=== PATIENT | male | born 1945 | race Caucasian/White ===

== ENCOUNTER 2020-08-05 14:17 | Observation (INO) | payer MEDICARE ==
[2020-08-05] MEDS ORDERED: Sodium Chloride 0.9% 1000 ML 1,000 ML IV SCH (15:30)
[2020-08-05] MEDS ORDERED: TYLENOL 325 MG PO SCH (15:30)
[2020-08-05] MEDS ORDERED: BENADRYL 25 MG CAPSULE PO SCH (15:30)
[2020-08-05] MEDS ORDERED: Lasix 20 MG/2 ML IV SCH (15:45)
[2020-08-05 16:41] LABS: Antibody Screen NEGATIVE (NEGATIVE); RH TYPING POSITIVE
[2020-08-05 16:42] LABS: CROSS MATCH (PRBC) COMPATIBLE (COMPATIBLE); Ferritin 52.9 ng/mL (17.9-464)
[2020-08-05] MEDS ORDERED: TYLENOL 325 MG PO PRN (17:00)
[2020-08-05] MEDS ORDERED: MEDICATION INTERVENTION MC SCH (17:30)
[2020-08-05 17:51] LABS: ABO TYPING O
[2020-08-05] MEDS ORDERED: NORVASC 5 MG PO SCH (18:00)
[2020-08-05] MEDS: Toprol Xl 100 MG PO SCH (18:21)
[2020-08-05] MEDS ORDERED: PYRIDOXINE HCL PO SCH (22:00)
[2020-08-05] MEDS ORDERED: TIMOPTIC 0.5% 5 ML OPHTHALMIC OP SCH (22:00)
[2020-08-05] MEDS ORDERED: MELATONIN PO SCH (22:00)
[2020-08-05] MEDS ORDERED: LATANOPROST OP SCH (22:00)
[2020-08-05] MEDS ORDERED: Lasix 20 MG/2 ML IV PRN (23:12)
[2020-08-06 06:31] LABS: Absolute Neutrophil Ct (ANC) 4.37 (1.4-6.9); BASOPHIL % 0.2 % (0.0-0.4); Basophil (Absolute #) 0.01 (0-0.4); Eosinophil % 1.4 % (0.00-5.0); Eosinophil (Absolute #) 0.09 (0-0.5); Hematocrit 29.2 % (42-50); Hemoglobin 9.3 gm/dl (12.5-18.0); Lymphocyte (Absolute #) 1.44 (1.0-4.6); Lymphocytes % 22.7 % (24.0-44.0); Mean Cell Volume 95.7 fl (78-100); Mean Corpuscular Hemoglobin 30.5 pg (26-32); Mean Corpuscular Hgb Concent. 31.8 g/dl (32-36); Monocyte (Absolute #) 0.44 (0.0-1.3); Monocytes % 6.9 % (0.0-12.0); Neutrophil % 68.8 % (36.0-66.0); Platelet Count 181 K/mm3 (150-450); Red Blood Count 3.05 M/mm3 (4.1-5.6); Red Cell Distribution Width 17.8 % (11.5-14.0); White Blood Count 6.4 K/mm3 (4.0-10.5)
[2020-08-06 06:49] LABS: ALBUMIN 3.1 g/dL (3.5-5.0); ANION GAP 9.1 MEQ/L (5-15); Calcium 8.1 mg/dL (8.4-10.2); Creatinine 1 2.39 mg/dL (0.66-1.25); EST GLOMERULAR FILTRATION RATE 28.4 ML/MIN; Potassium 4.8 mmol/L (3.5-5.1); Total Protein 7.4 g/dL (6.3-8.2)
--- NOTE | 2020-08-06 08:48 | PCM.HP.ADD ---
Addendum to History & Physical - History & Physical Addendum Addendum to History & Physical: This certifies that the History & Physical in the electronic chart reflects the current health status of the patient. If there are changes in the H&P these changes/exceptions are listed as follows. (Pt seen by Dr. Valderrama in office yesterday; CBC result with Hgb 5.9 so pt admitted for transfusion directly).
--- NOTE | 2020-08-06 08:53 | PCM.NOTE ---
Date and Time: 08/06/2049 Subjective Assessment: Pt without any distinct complaints. He is overall not feeling well. Mary Grace po well. Denies pain. - Review of Systems Constitutional: No Fever Abdominal/Gastrointestinal: No Vomiting Objective Exam General Appearance: no apparent distress, alert Neurologic Exam: oriented x 3, cooperative Skin Exam: normal color, warm, dry, No rash Eye Exam: other (strabismus) Ears, Nose, Throat Exam: moist mucous membranes Neck Exam: normal inspection Respiratory Exam: normal breath sounds, lungs clear, No crackles/rales, No rhonchi, No wheezing Cardiovascular Exam: regular rate/rhythm, normal heart sounds, No murmur Gastrointestinal/Abdomen Exam: soft, normal bowel sounds, No tenderness, No distention, No mass, No guarding, No rebound Extremity Exam: normal inspection, No pedal edema, No swelling Back Exam: normal inspection, No rash OBJECTIVE DATA Vital Signs: Vital Signs - 24 hr Temp Pulse Resp BP Pulse Ox 08/06/20 08:10 94 L 08/06/20 07:32 98.1 F 74 16 173/79 93 L 08/06/20 04:00 98.1 F 70 16 185/80 96 08/05/20 23:52 98.1 F 73 18 161/75 93 L 08/05/20 20:00 92 L 08/05/20 19:44 98.0 F 72 16 147/65 94 L 08/05/20 16:00 98.4 F 73 18 159/73 94 L 08/05/20 15:49 98.4 F 73 18 159/73 94 L 08/05/20 15:20 98.4 F 73 18 159/73 94 L Oxygen-Last 24 hours Oxygen Flowrate (L/min)-RT 2 Pain Assessment - Last Documented Pain Intensity 0 Pain Scale Used 0-10 Pain Scale Intake and Output: Intake & Output 08/03/20 08/04/20 08/05/20 08/06/20 11:59 11:59 11:59 11:59 Intake Total 600 Output Total 2150 Balance -1550 Weight 72.2 kg Lab Results: Lab Results-Last 24 Hours 08/05/20 08/05/20 08/05/20 Range/Units 15:20 15:20 15:20 WBC (4.0-10.5) K/mm3 RBC (4.1-5.6) M/mm3 Hgb (12.5-18.0) gm/dl Hct (42-50) % MCV (78-100) fl MCH (26-32) pg MCHC (32-36) g/dl RDW (11.5-14.0) % Plt Count (150-450) K/mm3 MPV (7.5-11.0) fl Gran % (36.0-66.0) % Eos # (Auto) (0-0.5) Absolute Lymphs (auto) (1.0-4.6) Absolute Monos (auto) (0.0-1.3) Lymphocytes % (24.0-44.0) % Monocytes % (0.0-12.0) % Eosinophils % (0.00-5.0) % Basophils % (0.0-0.4) % Absolute Granulocytes (1.4-6.9) Basophils # (0-0.4) Sodium (137-145) mmol/L Potassium (3.5-5.1) mmol/L Chloride (98-107) mmol/L Carbon Dioxide (22-30) mmol/L Anion Gap (5-15) MEQ/L BUN (9-20) mg/dL Creatinine (0.66-1.25) mg/dL Estimated GFR ML/MIN Glucose (74-106) mg/dL Calcium (8.4-10.2) mg/dL Iron 52 (49-181) ug/dL Ferritin 52.9 (17.9-464) ng/mL Total Bilirubin (0.2-1.3) mg/dL AST (17-59) U/L ALT (0-50) U/L Alkaline Phosphatase (38-126) U/L Serum Total Protein (6.3-8.2) g/dL Albumin (3.5-5.0) g/dL Vitamin B12 640 (239-931) pg/mL ABO Group O Rh Factor POSITIVE Antibody Screen NEGATIVE (NEGATIVE) Crossmatch COMPATIBLE (COMPATIBLE) 08/05/20 08/05/20 08/06/20 Range/Units 15:20 15:20 05:55 WBC 6.4 (4.0-10.5) K/mm3 RBC 3.05 L (4.1-5.6) M/mm3 Hgb 9.3 L D (12.5-18.0) gm/dl Hct 29.2 L (42-50) % MCV 95.7 D (78-100) fl MCH 30.5 (26-32) pg MCHC 31.8 L (32-36) g/dl RDW 17.8 H (11.5-14.0) % Plt Count 181 (150-450) K/mm3 MPV 10.0 (7.5-11.0) fl Gran % 68.8 H (36.0-66.0) % Eos # (Auto) 0.09 (0-0.5) Absolute Lymphs (auto) 1.44 (1.0-4.6) Absolute Monos (auto) 0.44 (0.0-1.3) Lymphocytes % 22.7 L (24.0-44.0) % Monocytes % 6.9 (0.0-12.0) % Eosinophils % 1.4 (0.00-5.0) % Basophils % 0.2 (0.0-0.4) % Absolute Granulocytes 4.37 (1.4-6.9) Basophils # 0.01 (0-0.4) Sodium (137-145) mmol/L Potassium (3.5-5.1) mmol/L Chloride (98-107) mmol/L Carbon Dioxide (22-30) mmol/L Anion Gap (5-15) MEQ/L BUN (9-20) mg/dL Creatinine (0.66-1.25) mg/dL Estimated GFR ML/MIN Glucose (74-106) mg/dL Calcium (8.4-10.2) mg/dL Iron (49-181) ug/dL Ferritin (17.9-464) ng/mL Total Bilirubin (0.2-1.3) mg/dL AST (17-59) U/L ALT (0-50) U/L Alkaline Phosphatase (38-126) U/L Serum Total Protein (6.3-8.2) g/dL Albumin (3.5-5.0) g/dL Vitamin B12 (239-931) pg/mL ABO Group Rh Factor Antibody Screen (NEGATIVE) Crossmatch COMPATIBLE COMPATIBLE (COMPATIBLE) 08/06/20 Range/Units 05:55 WBC (4.0-10.5) K/mm3 RBC (4.1-5.6) M/mm3 Hgb (12.5-18.0) gm/dl Hct (42-50) % MCV (78-100) fl MCH (26-32) pg MCHC (32-36) g/dl RDW (11.5-14.0) % Plt Count (150-450) K/mm3 MPV (7.5-11.0) fl Gran % (36.0-66.0) % Eos # (Auto) (0-0.5) Absolute Lymphs (auto) (1.0-4.6) Absolute Monos (auto) (0.0-1.3) Lymphocytes % (24.0-44.0) % Monocytes % (0.0-12.0) % Eosinophils % (0.00-5.0) % Basophils % (0.0-0.4) % Absolute Granulocytes (1.4-6.9) Basophils # (0-0.4) Sodium 140 (137-145) mmol/L Potassium 4.8 (3.5-5.1) mmol/L Chloride 110 H (98-107) mmol/L Carbon Dioxide 26 (22-30) mmol/L Anion Gap 9.1 (5-15) MEQ/L BUN 49 H (9-20) mg/dL Creatinine 2.39 H (0.66-1.25) mg/dL Estimated GFR 28.4 ML/MIN Glucose 93 (74-106) mg/dL Calcium 8.1 L (8.4-10.2) mg/dL Iron (49-181) ug/dL Ferritin (17.9-464) ng/mL Total Bilirubin 1.00 (0.2-1.3) mg/dL AST 32 (17-59) U/L ALT 21 (0-50) U/L Alkaline Phosphatase 104 (38-126) U/L Serum Total Protein 7.4 (6.3-8.2) g/dL Albumin 3.1 L (3.5-5.0) g/dL Vitamin B12 (239-931) pg/mL ABO Group Rh Factor Antibody Screen (NEGATIVE) Crossmatch (COMPATIBLE) Assessment/Plan (1) Acute renal injury Current Visit: Yes Status: Acute Assessment & Plan: His eGFR was >60 in January 2020; currently 28. I restarted IV fluids at 100 cc/hr; repeat labs in a.m. Code(s): N17.9 - ACUTE KIDNEY FAILURE, UNSPECIFIED (2) Anemia Current Visit: Yes Status: Acute Qualifiers: Anemia type: unspecified type Qualified Code(s): D64.9 - Anemia, unspecified Assessment & Plan: Hemoccult ordered. Pt denies blood in stool (although he notes his eyesight is not good). Denies frequent use of aspirin, aleve, or advil. Code(s): D64.9 - ANEMIA, UNSPECIFIED (3) Chronic hypoxemic respiratory failure Current Visit: Yes Status: Acute
[2020-08-06] MEDS: Sodium Chloride 0.9% 1000 ML 1,000 ML IV SCH ×2 (09:55→21:26)
[2020-08-06] MEDS: NORVASC 5 MG PO SCH ×2 (09:56→21:21)
[2020-08-06] MEDS: Toprol Xl 100 MG PO SCH (09:56)
[2020-08-06] MEDS: FEOSOL 325 MG PO SCH (09:56)
[2020-08-06] MEDS: PATIENT OWN MEDICATION OP SCH ×4 (11:42→21:22)
[2020-08-06] MEDS ORDERED: NORVASC 5 MG PO SCH (22:00)
[2020-08-07] MEDS: Sodium Chloride 0.9% 1000 ML 1,000 ML IV SCH (03:58)
[2020-08-07 05:29] LABS: Hematocrit 28.2 % (42-50); Hemoglobin 8.7 gm/dl (12.5-18.0); Mean Cell Volume 96.6 fl (78-100); Mean Corpuscular Hemoglobin 29.8 pg (26-32); Mean Corpuscular Hgb Concent. 30.9 g/dl (32-36); Mean Platelet Volume 10.3 fl (7.5-11.0); Platelet Count 158 K/mm3 (150-450); Red Blood Count 2.92 M/mm3 (4.1-5.6); Red Cell Distribution Width 17.6 % (11.5-14.0); White Blood Count 6.2 K/mm3 (4.0-10.5)
[2020-08-07 05:39] LABS: ANION GAP 6.9 MEQ/L (5-15); Calcium 7.8 mg/dL (8.4-10.2); Creatinine 1 2.42 mg/dL (0.66-1.25); Potassium 4.6 mmol/L (3.5-5.1)
[2020-08-07 07:46] VITALS: BP 159/75; PULSE 67
[2020-08-07 08:37] VITALS: O2SAT 95
--- NOTE | 2020-08-07 08:43 | PCM.DS ---
Discharge Summary Date of Admission: 08/05/20 14:51 Admitting Physician: NARESH VALDERRAMA Primary Care Provider: NARESH VALDERRAMA Allergies Allergies No Known Drug Allergies Allergy (Verified 08/05/20 15:35) Hospital Summary - Hospital Course Hospital Course: patient was admitted from office after labs showed hemoglobin of 5.9, he was recently hospitalized at [facility] and was found to have anemia during a stay for pneumonia, he also has new onset renal failure. He has an appointment to see Dr Breen in followup later this month, his renal function is stable. his hemoglobin dropped significantly in spite of taking iron therapy after discharge from [facility]. he is being referred for hematology consult, his hemocult was negative during stay, has no gross hematochezia or hematuria and b12/folate are normal - Vitals & Intake/Output Vital Signs: Vital Signs Temperature 98.3 F 08/07/20 07:46 Pulse Rate 67 08/07/20 07:46 Respiratory Rate 18 08/07/20 07:46 Blood Pressure 159/75 08/07/20 07:46 O2 Sat by Pulse Oximetry 95 08/07/20 08:20 Intake & Output: Intake & Output 08/04/20 08/05/20 08/06/20 08/07/20 11:59 11:59 11:59 11:59 Intake Total 1080 2090 Output Total 2150 1420 Balance -1070 670 Weight 72.2 kg - Lab Result Diagrams: 08/07/20 04:27 08/07/20 04:27 Lab Results-Last 24 Hrs: Lab Results-Last 24 Hours 08/05/20 08/06/20 08/07/20 Range/Units 15:20 09:21 04:27 WBC 6.2 (4.0-10.5) K/mm3 RBC 2.92 L (4.1-5.6) M/mm3 Hgb 8.7 L (12.5-18.0) gm/dl Hct 16.9 L* 28.2 L (37.5-51.0) % MCV 96.6 (78-100) fl MCH 29.8 (26-32) pg MCHC 30.9 L (32-36) g/dl RDW 17.6 H (11.5-14.0) % Plt Count 158 (150-450) K/mm3 MPV 10.3 (7.5-11.0) fl Percent Retic 7.4 H (0.6-2.6) % Sodium (137-145) mmol/L Potassium (3.5-5.1) mmol/L Chloride (98-107) mmol/L Carbon Dioxide (22-30) mmol/L Anion Gap (5-15) MEQ/L BUN (9-20) mg/dL Creatinine (0.66-1.25) mg/dL Estimated GFR ML/MIN Glucose (74-106) mg/dL Calcium (8.4-10.2) mg/dL Transferrin 222 (177-329) mg/dL RBC Folate Hemolysate 322.0 (Not Estab.) ng/mL RBC Folate 1905 (>498) ng/mL Stl Occult Blood (IFOB) NEGATIVE (NEGATIVE) 08/07/20 Range/Units 04:27 WBC (4.0-10.5) K/mm3 RBC (4.1-5.6) M/mm3 Hgb (12.5-18.0) gm/dl Hct (37.5-51.0) % MCV (78-100) fl MCH (26-32) pg MCHC (32-36) g/dl RDW (11.5-14.0) % Plt Count (150-450) K/mm3 MPV (7.5-11.0) fl Percent Retic (0.6-2.6) % Sodium 138 (137-145) mmol/L Potassium 4.6 (3.5-5.1) mmol/L Chloride 109 H (98-107) mmol/L Carbon Dioxide 26 (22-30) mmol/L Anion Gap 6.9 (5-15) MEQ/L BUN 49 H (9-20) mg/dL Creatinine 2.42 H (0.66-1.25) mg/dL Estimated GFR 28.0 ML/MIN Glucose 103 (74-106) mg/dL Calcium 7.8 L (8.4-10.2) mg/dL Transferrin (177-329) mg/dL RBC Folate Hemolysate (Not Estab.) ng/mL RBC Folate (>498) ng/mL Stl Occult Blood (IFOB) (NEGATIVE) - Procedures and Test Procedures and Tests throughout Hospitalization: Therapy Orders & Screens 08/05/20 14:55 Oxygen Nasal Cannula 1 lpm Comment: KEEP SATS > 92% Diagnosis: ANEMIA,FATIGUE 08/05/20 22:09 Flutter Therapy UD Comment: Diagnosis: Anemia and fatigue Discharge Exam General Appearance: no apparent distress Neurologic Exam: alert, oriented x 3, cooperative Respiratory Exam: normal breath sounds, lungs clear, No respiratory distress Cardiovascular Exam: regular rate/rhythm, normal heart sounds Gastrointestinal/Abdomen Exam: soft, No tenderness, No mass Skin Exam: normal color, warm, dry Final Diagnosis/Problem List - Final Discharge Diagnosis/Problem (1) Macrocytic anemia Current Visit: Yes Status: Acute Assessment & Plan: b12 and folate are normal/ h/h stable post transfusion. will refer for hematology consult as outpatient after discharge, patient agrees. will repeat cbc next week Code(s): D53.9 - NUTRITIONAL ANEMIA, UNSPECIFIED (2) Acute renal injury Current Visit: Yes Status: Acute Assessment & Plan: has appt with Dr Breen in [facility] this month per patient on 08/30 Code(s): N17.9 - ACUTE KIDNEY FAILURE, UNSPECIFIED (3) Chronic hypoxemic respiratory failure Current Visit: Yes Status: Acute Assessment & Plan: oxygen ordered from office - Discharge Disposition: Home, Self-Care Condition: Stable Prescriptions: Continue Ferrous Sulfate 325 mg [Feosol 325 mg] 325 mg PO DAILY Amlodipine Besylate 5 mg [Norvasc 5 mg] 5 mg PO DAILY Timolol Maleate 0.5% Eye [Timoptic 0.5% 5 ml Ophthalmic] 5 ml OP BID Latanoprost/Pf [Latanoprost 0.005% Eye Drop] 7.5 ml OP BID Metoprolol Succinate 100 mg [Toprol Xl 100 MG] 100 mg PO DAILY Melatonin/Pyridoxine HCl (B6) [Melatonin 5 mg Tablet] 2 each PO HS Outpatient Orders: CBC W DIFF Time Frame: 1 Week, Facility: [facility], Location: LABORATORY Additional Instructions: see Dr Jamshid valdez this month as scheduled, referred for hematology, have cbc drawn and see Dr Valderrama in 1 week Follow up with: NARESH VALDERRAMA MD [Primary Care Provider] - 1 Week MARILUZ YOST [COURTESY STAFF] - Call for Appointment (patient needs new referral for macrocytic anemia and scheduled to [place] office, has been transfused. please send all lab results from hospital stay)
[2020-08-07] MEDS: Toprol Xl 100 MG PO SCH (09:05)
[2020-08-07] MEDS: FEOSOL 325 MG PO SCH (09:05)
[2020-08-07] MEDS: NORVASC 5 MG PO SCH (09:05)
[2020-08-07] MEDS: PATIENT OWN MEDICATION OP SCH ×2 (09:06)
== END 2020-08-07 10:05 | disposition home or self-care (01) ==
LOC: MED SURG 14:51
PROVIDERS: ADMIT Family Medicine; ATTEND Family Medicine
DX: D53.9 Nutritional anemia, unspecified (principal); N17.9 Acute kidney failure, unspecified; J96.11 Chronic respiratory failure with hypoxia; Z79.899 Other long term (current) drug therapy; R53.83 Other fatigue
CPT/HCPCS: 36415; 36430; 80048; 80053; 82274; 82607; 82728; 82747; 83540; 84466; 85014; 85025; 85027; 85045; 86850; 86900; 86901; 86922; 93268; 94667; 94760; G0378; P9016; J1940; A9270-GY

== ENCOUNTER 2020-09-10 14:21 | Observation (INO) | payer MEDICARE ==
[2020-09-10] MEDS ORDERED: TYLENOL 325 MG PO PRN (15:21)
[2020-09-10] MEDS ORDERED: BENADRYL 25 MG CAPSULE PO SCH (15:30)
[2020-09-10] MEDS ORDERED: Sodium Chloride 0.9% 500 ML 500 ML IV SCH (15:30)
[2020-09-10] MEDS ORDERED: Sodium Chloride 0.9% 250 ML 250 ML IV ONE (16:25)
[2020-09-10 16:43] LABS: ABO TYPING O; Antibody Screen NEGATIVE (NEGATIVE); RH TYPING POSITIVE
[2020-09-10 16:45] LABS: CROSS MATCH (PRBC) COMPATIBLE (COMPATIBLE)
[2020-09-10] MEDS ORDERED: MELATONIN PO PRN (17:12)
[2020-09-10] MEDS ORDERED: PYRIDOXINE HCL PO PRN (17:12)
[2020-09-10] MEDS ORDERED: xanAX 0.25 MG PO PRN (17:12)
[2020-09-10] MEDS ORDERED: Sodium Chloride 0.9% 250 ML 250 ML IV SCH (17:15)
[2020-09-10] MEDS ORDERED: MEDICATION INTERVENTION MC PRN (17:27)
[2020-09-10] MEDS ORDERED: ZOCOR 20MG PO SCH (22:00)
[2020-09-10] MEDS ORDERED: LATANOPROST OP SCH (22:00)
[2020-09-10] MEDS ORDERED: NORVASC 5 MG PO SCH (22:00)
[2020-09-10] MEDS: Xalatan OP SCH (22:06)
[2020-09-10] MEDS: TIMOPTIC 0.5% 5 ML OPHTHALMIC OP SCH (22:07)
[2020-09-10 23:47] LABS: Hematocrit 25.4 % (42-50)
[2020-09-11 07:30] VITALS: BP 139/63; PULSE 67; O2SAT 96
[2020-09-11] MEDS: TIMOPTIC 0.5% 5 ML OPHTHALMIC OP SCH (09:01)
[2020-09-11] MEDS: Xalatan OP SCH (09:01)
[2020-09-11] MEDS ORDERED: Toprol Xl 100 MG PO SCH (10:00)
--- NOTE | 2020-09-11 10:05 | PCM.SSS ---
History of Present Illness - Chief Complaint Chief Complaint: Anemia History of Present Illness: is a 75 year old male who was direct admitted at the request of his oncology Dr Franky Yost, he has had multiple transfusions, found to have anemia likely related to chronic kidney disease as well as iron deficiency, he has been given 2 units of packed red blood cells, has no complaints today, tolerating po intake. - Review of Systems Constitutional: Weakness, No Fever, No Chills Respiratory: No Cough, No Short Of Breath Cardiac: No Chest Pain, No Edema, No Syncope Abdominal/Gastrointestinal: No Symptoms All Other Systems: Reviewed and Negative Medications & Allergies Home Medications: Home Medication List Amlodipine Besylate 5 mg [Norvasc 5 mg] 5 mg PO HS 08/05/20 [History Confirmed 09/10/20] Ferrous Sulfate 325 mg [Feosol 325 mg] 325 mg PO DAILY 08/05/20 [History Confirmed 09/10/20] Latanoprost/Pf [Latanoprost 0.005% Eye Drop] 7.5 ml OP BID 08/05/20 [History Confirmed 09/10/20] Melatonin/Pyridoxine HCl (B6) [Melatonin 5 mg Tablet] 2 each PO HSPRN PRN 08/05/20 [History Confirmed 09/10/20] Metoprolol Succinate 100 mg [Toprol Xl 100 MG] 100 mg PO DAILY 08/05/20 [History Confirmed 09/10/20] Timolol Maleate 0.5% Eye [Timoptic 0.5% 5 ml Ophthalmic] 1 ml OP BID 11/20 [History Confirmed 09/10/20] Simvastatin 20Mg [Zocor 20Mg] 40 mg PO HS 08/23/20 [History Confirmed 09/10/20] Alprazolam 0.25 mg [xanAX 0.25 MG] 0.25 mg PO DAILY PRN 09/10/20 [History Confirmed 09/10/20] Allergies/Adverse Reactions: Allergies Allergy/AdvReac Type Severity Reaction Status Date / Time No Known Drug Allergies Allergy Verified 09/10/20 13:33 - Past Medical History Past Medical History: Yes Neurological History: No Pertinent History ENT History: Cataracts, Glaucoma Cardiac History: Myocardial Infarction (PR) Respiratory History: Pneumonia Endocrine Medical History: No Pertinent History Musculoskelatal History: No Pertinent History GI Medical History: No Pertinent History History: Kidney Cancer Pyscho-Social History: Anxiety Male Reproductive Disorders: No Pertinent History Comment: Patient had open heart surgery 2006. Left kidney removed. - Past Surgical History Past Surgical History: Yes Neuro Surgical History: No Pertinent History Cardiac History: CABG Respiratory Surgery: Chest Surgery GI Surgical History: No Pertinent History Genitourinary Surgical Hx: Kidney Surgery Musculskeletal Surgical Hx: No Pertinent History Male Surgical History: No Pertinent History Other Surgical History: Left kidney removed. - Social History Smoking Status: Former smoker How long have you smoked: 60 years Exposure to second hand smoke: No Alcohol: None Drug Use: none - Physical Exam Vital Signs: Vital Signs - 24 hr Temp Pulse Resp BP Pulse Ox 09/11/20 07:29 98.5 F 67 18 139/63 96 09/11/20 03:07 97 F 68 20 138/68 94 L 09/11/20 00:00 97.8 F 70 21 140/63 95 09/10/20 20:00 97.7 F 71 14 134/61 96 09/10/20 15:13 98.3 F 60 22 146/70 98 General Appearance: no apparent distress, alert Neurologic Exam: alert, oriented x 3, cooperative, normal mood/affect, nml cerebellar function, nml station & gait, sensation nml, No motor deficits Respiratory Exam: normal breath sounds, lungs clear, No respiratory distress Cardiovascular Exam: regular rate/rhythm, normal heart sounds, normal peripheral pulses Gastrointestinal/Abdomen Exam: soft, normal bowel sounds, No tenderness, No mass Extremity Exam: normal inspection, normal range of motion, pelvis stable Skin Exam: normal color, warm, dry, No rash Results - Labs Lab/Micro Results: Lab Results-Last 24 Hours 09/10/20 09/10/20 09/10/20 Range/Units 15:15 15:15 15:15 Hgb (12.5-18.0) gm/dl Hct (42-50) % ABO Group O Rh Factor POSITIVE Antibody Screen NEGATIVE (NEGATIVE) Crossmatch COMPATIBLE COMPATIBLE (COMPATIBLE) 09/10/20 Range/Units 23:27 Hgb 8.0 L (12.5-18.0) gm/dl Hct 25.4 L (42-50) % ABO Group Rh Factor Antibody Screen (NEGATIVE) Crossmatch (COMPATIBLE) Assessment/Plan (1) Anemia in chronic kidney disease (CKD) Current Visit: Yes Status: Acute Assessment & Plan: s/p transfuion, spoke with Dr Yost, he agrees with EGD/colonoscopy with Hua PEREIRA, he is awaiting cardiac clearance to have endoscopic evaluation done. I advised to have GI perform due to multiple medical problems and age risk factors. Code(s): N18.9 - CHRONIC KIDNEY DISEASE, UNSPECIFIED; D63.1 - ANEMIA IN CHRONIC KIDNEY DISEASE Hospital Summary - Vitals & Intake/Output Vital Signs: Vital Signs Temperature 98.5 F 09/11/20 07:29 Pulse Rate 67 09/11/20 07:29 Respiratory Rate 18 09/11/20 07:29 Blood Pressure 139/63 09/11/20 07:29 O2 Sat by Pulse Oximetry 96 09/11/20 07:29 Intake & Output: Intake & Output 09/08/20 09/09/20 09/10/20 09/11/20 11:59 11:59 11:59 11:59 Intake Total 1040 Output Total 600 Balance 440 Weight 72.1 kg - Lab Result Diagrams: 09/10/20 23:27 Lab Results-Last 24 Hrs: Lab Results-Last 24 Hours 09/10/20 09/10/20 09/10/20 Range/Units 15:15 15:15 15:15 Hgb (12.5-18.0) gm/dl Hct (42-50) % ABO Group O Rh Factor POSITIVE Antibody Screen NEGATIVE (NEGATIVE) Crossmatch COMPATIBLE COMPATIBLE (COMPATIBLE) 09/10/20 Range/Units 23:27 Hgb 8.0 L (12.5-18.0) gm/dl Hct 25.4 L (42-50) % ABO Group Rh Factor Antibody Screen (NEGATIVE) Crossmatch (COMPATIBLE) - Discharge Disposition: Home, Self-Care Condition: Stable Prescriptions: Continue Ferrous Sulfate 325 mg [Feosol 325 mg] 325 mg PO DAILY Amlodipine Besylate 5 mg [Norvasc 5 mg] 5 mg PO HS Timolol Maleate 0.5% Eye [Timoptic 0.5% 5 ml Ophthalmic] 1 ml OP BID Latanoprost/Pf [Latanoprost 0.005% Eye Drop] 7.5 ml OP BID Metoprolol Succinate 100 mg [Toprol Xl 100 MG] 100 mg PO DAILY Melatonin/Pyridoxine HCl (B6) [Melatonin 5 mg Tablet] 2 each PO HSPRN PRN PRN Reason: sleep Simvastatin 20Mg [Zocor 20Mg] 40 mg PO HS Alprazolam 0.25 mg [xanAX 0.25 MG] 0.25 mg PO DAILY PRN PRN Reason: Anxiety Follow up with: NARESH TRUJILLO MD [Primary Care Provider] - 09/18/20 11:00 am MARILUZ YOST [COURTESY STAFF] - MARY ANN GALLARDO NP [NON-STAFF PHY W/O PRIVILEGES] - Call for Appointment (needs to see his coke drawer for clearance then schedule EGD/colon with GI per Mary Ann Gallardo NP)
== END 2020-09-11 11:15 | disposition home or self-care (01) ==
LOC: MED SURG 14:48
PROVIDERS: ADMIT Family Medicine; ATTEND Family Medicine
DX: N18.9 Chronic kidney disease, unspecified (principal); D63.1 Anemia in chronic kidney disease; Z79.899 Other long term (current) drug therapy
CPT/HCPCS: 36415; 36430; 85014; 85018; 85025; 86850; 86900; 86901; 86922; 96401; 99211; G0378; P9016; A9270-GY; Q5106

== ENCOUNTER 2020-09-18 17:35 | Emergency (ER) | payer MEDICARE ==
[2020-09-18] MEDS ORDERED: Sodium Chloride 0.9% 1000 ML 1,000 ML IV STA (18:22)
--- NOTE | 2020-09-18 18:28 | ERPHSYRPT ---
- History of Present Illness Source: patient Exam Limitations: no limitations Patient Subjective Stated Complaint: abnormal labs, sent to ED by kidney doc. also reports hx of low platelet cound and low hgb. Triage Nursing Assessment: pt to ED stating he was sent to ED by kidney doc for abnormal labs. states "kidney function was 20 and I guess now its 10." also reports that he has had hx of low platelets and low hgb - has had infusions in past. also reports he recieved a "shot for blood count" today in infusion center. denies pain now and has no complaints. A&Ox3. ambulates with slow steady gate. Hx Tetanus, Diphtheria Vaccination/Date Given: Yes Hx Influenza Vaccination/Date Given: Yes Hx Pneumococcal Vaccination/Date Given: Yes Immunizations Up to Date: Yes <SARIKA ZELAYA - Last Filed: 09/18/20 18:44> <FERNANDO GROVES - Last Filed: 09/18/20 20:30> - History of Present Illness Time Seen by Provider: 09/18/20 18:09 Physician History: 75 years old male with history of hypertension, hyperlipidemia, aortic valve replacement, chronic kidney disease presented in the ER with worsening renal functions checked by nephrology today. Patient report he does have history of anemia and thrombocytopenia needing multiple transfusions in the past and is currently getting iron infusion. He has his labs done today for recheck of his blood count and it was found out that patient's renal functions are getting worse. Patient denies any vomiting diarrhea. Denies decreased oral liquid intake. He has mild generalized abdominal discomfort but denies any pain. Patient report this is been going on for quite some time is and is not any different than usual. He denies any chest pain palpitations or shortness of breath. Denies any lowe extremity swelling or pain. (SARIKA ZELAYA) Allergies/Adverse Reactions: No Known Drug Allergies Allergy (Verified 09/10/20 13:33) Home Medications: Amlodipine Besylate 5 mg [Norvasc 5 mg] 5 mg PO HS 08/05/20 [History] Ferrous Sulfate 325 mg [Feosol 325 mg] 325 mg PO DAILY 08/05/20 [History] Latanoprost/Pf [Latanoprost 0.005% Eye Drop] 7.5 ml OP BID 08/05/20 [History] Metoprolol Succinate 100 mg [Toprol Xl 100 MG] 100 mg PO DAILY 08/05/20 [History] Timolol Maleate 0.5% Eye [Timoptic 0.5% 5 ml Ophthalmic] 1 ml OP BID 08/05/20 [History] Simvastatin 20Mg [Zocor 20Mg] 40 mg PO HS 08/23/20 [History] Travel Risk - International Travel Have you traveled outside of the country in past 3 weeks: No - Coronavirus Screening Are you exhibiting any of the following symptoms?: No Close contact with a COVID-19 positive Pt in past 14-21 Days: No <SARIKA ZELAYA - Last Filed: 09/18/20 18:44> - Review of Systems Constitutional: Fatigue Eyes: No Symptoms Ears, Nose, & Throat: No Symptoms Respiratory: No Symptoms Cardiac: No Symptoms Abdominal/Gastrointestinal: Abdominal Pain Genitourinary Symptoms: No Symptoms Musculoskeletal: No Symptoms Skin: No Symptoms Neurological: No Symptoms Psychological: No Symptoms Endocrine: No Symptoms Hematologic/Lymphatic: No Symptoms Immunological/Allergic: No Symptoms <SARIKA ZELAYA - Last Filed: 09/18/20 18:44> - Past Medical History Pertinent Past Medical History: Yes Neurological History: No Pertinent History ENT History: Cataracts, Glaucoma Cardiac History: Myocardial Infarction (DC) Respiratory History: Pneumonia Endocrine Medical History: No Pertinent History Musculoskeletal History: No Pertinent History GI Medical History: No Pertinent History History: Kidney Cancer Psycho-Social History: Anxiety Male Reproductive Disorders: No Pertinent History Other Medical History: Patient had open heart surgery 2006. Left kidney removed 2010. - Past Surgical History Past Surgical History: Yes Neuro Surgical History: No Pertinent History Cardiac: CABG Respiratory: Chest Surgery Gastrointestinal: No Pertinent History Genitourinary: Kidney Surgery Musculoskeletal: No Pertinent History Male Surgical History: No Pertinent History Other Surgical History: Left kidney removed 2010. - Social History Smoking Status: Former smoker How long have you smoked: 60 years Exposure to second hand smoke: No Drug Use: none Patient Lives Alone: No <SARIKA ZELAYA - Last Filed: 09/18/20 18:44> - Physical Exam General Appearance: no apparent distress, alert Eye Exam: PERRL/EOMI, eyes nml inspection Ears, Nose, Throat Exam: normal ENT inspection, pharynx normal Neck Exam: normal inspection, non-tender, supple, full range of motion Respiratory Exam: normal breath sounds, lungs clear Cardiovascular Exam: regular rate/rhythm, normal heart sounds Gastrointestinal/Abdomen Exam: soft, normal bowel sounds, No tenderness Back Exam: normal inspection, normal range of motion, No CVA tenderness Extremity Exam: normal inspection, normal range of motion Neurologic Exam: alert, oriented x 3, cooperative, application support II-XII nml as tested, normal mood/affect Skin Exam: normal color SpO2 Interpretation: normal SpO2: 97 O2 Delivery: Room Air <SARIKA ZELAYA - Last Filed: 09/18/20 18:44> - Nursing Vital Signs Nursing Vital Signs: Initial Vital Signs Temperature 97.4 F 09/18/20 17:47 Pulse Rate 62 09/18/20 17:47 Respiratory Rate 17 09/18/20 17:47 Blood Pressure 150/70 09/18/20 17:47 O2 Sat by Pulse Oximetry 97 09/18/20 17:47 Pain Scale Pain Intensity 0 Ordered Tests: Active Orders 24 hr Category Date Time Status IV Insertion STAT Care 09/18/20 18:22 Active CMP Stat Lab 09/18/20 18:30 Completed CULTURE,URINE Stat Lab 09/18/20 19:41 Received UA W/RFX UR CULTURE Stat Lab 09/18/20 19:41 Completed Medication Summary Discontinued Medications Generic Name Dose Route Start Last Admin Trade Name Mayra PRN Reason Stop Dose Admin Sodium Chloride 1,000 mls @ 999 mls/hr 09/18/20 18:22 09/18/20 18:37 Sodium Chloride 0.9% 1000 Ml IV 09/18/20 19:22 999 mls/hr .Q1H1M STA Administration Sodium Chloride Confirm 09/18/20 18:36 Sodium Chloride 0.9% 1000 Ml Administered 09/18/20 18:37 Dose 1,000 mls @ ud .ROUTE .K-MED ONE Lab/Rad Data: Laboratory Result Diagrams 09/18/20 18:30 Laboratory Results 09/18/20 09/18/20 Range/Units 19:41 18:30 Sodium 136 L (137-145) mmol/L Potassium 4.9 D (3.5-5.1) mmol/L Chloride 105 (98-107) mmol/L Carbon Dioxide 21 L (22-30) mmol/L Anion Gap 14.5 (5-15) MEQ/L BUN 84 H (9-20) mg/dL Creatinine 6.48 H (0.66-1.25) mg/dL Estimated GFR 9.0 ML/MIN Glucose 96 (74-106) mg/dL Calcium 8.2 L (8.4-10.2) mg/dL Total Bilirubin 0.40 (0.2-1.3) mg/dL AST 23 (17-59) U/L ALT 18 (0-50) U/L Alkaline Phosphatase 107 (38-126) U/L Serum Total Protein 7.7 (6.3-8.2) g/dL Albumin 3.1 L (3.5-5.0) g/dL Urine Color YELLOW (YELLOW) Urine Appearance CLOUDY (CLEAR) Urine pH 5.0 (5-6) Ur Specific [place] 1.012 (1.005-1.025) Urine Protein 100 (Negative) Urine Ketones NEGATIVE (NEGATIVE) Urine Blood LARGE (0-5) Rob/ul Urine Nitrite NEGATIVE (NEGATIVE) Urine Bilirubin NEGATIVE (NEGATIVE) Urine Urobilinogen NEGATIVE (0-1) mg/dL Ur Leukocyte Esterase NEGATIVE (NEGATIVE) Urine WBC (Auto) 26-50 (0-5) /HPF Urine RBC (Auto) >101 (0-2) /HPF U Epithel Cells (Auto) NONE (FEW) /HPF Urine Bacteria (Auto) RARE (NEGATIVE) /HPF Urine Mucus (Auto) SLIGHT (NEGATIVE) /HPF Urine Culture Reflexed YES (NO) Urine Glucose NEGATIVE (NEGATIVE) mg/dL - Progress Progress: unchanged Counseled pt/family regarding: lab results, diagnosis <SARIKA ZELAYA - Last Filed: 09/18/20 18:44> - Progress Progress: unchanged Discussed with Dr.: Other (@20:05, spoke with Dr Curry, Nephrology at [facility]. She agreed with transfer and accepted the patient for transfer) Counseled pt/family regarding: lab results, diagnosis <FERNANDO GROVES - Last Filed: 09/18/20 20:30> - Progress Progress Note: 09/18/20 18:26 Patient has acute on chronic renal failure with his baseline around 2.7 and today is 5.8 and also increase in BUN from 39-80. His hemoglobin is 9.8 with his baseline around 8 but I believe it is secondary to volume contraction/hemoconcentration. He has potassium of 3.9. Patient is not in any distress. No signs of fluid overload. Discussed with Dr. Valderrama, recommended transfer to facility with nephrology services. I have called [facility] transfer line to get hold of Dr. Lim who is his primary bike designer for possible transfer. 09/18/20 18:44 He is started on fluids. Discussed with Dr. Lim, recommended repeating labs and if repeat 1 also showed acute on chronic renal failure needing to contact him again. Care is transferred to Dr. Groves at shift change. (SARIKA ZELAYA) - Departure Departure Disposition: Transfer Critical Care Time: No <SARIKA ZELAYA - Last Filed: 09/18/20 18:44> - Departure Departure Disposition: Transfer <FERNANDO GROVESE - Last Filed: 09/18/20 20:30> - Departure Clinical Impression: Anemia of chronic disease Acute on chronic renal failure Qualifiers: Acute renal failure type: unspecified Chronic kidney disease stage: unspecified stage Qualified Code(s): N17.9 - Acute kidney failure, unspecified; N18.9 - Chronic kidney disease, unspecified Hypertension Qualifiers: Hypertension type: essential hypertension Qualified Code(s): I10 - Essential (primary) hypertension Condition: Stable Referrals: NARESH VALDERRAMA MD [Primary Care Provider] - Additional Instructions: Patient was accepted for transfer to [facility] in [place], [place]
[2020-09-18] MEDS ORDERED: Sodium Chloride 0.9% 1000 ML 1,000 ML ONE (18:36)
[2020-09-18 18:59] LABS: ALBUMIN 3.1 g/dL (3.5-5.0); ANION GAP 14.5 MEQ/L (5-15); BILIRUBIN,TOTAL 0.4 mg/dL (0.2-1.3); Calcium 8.2 mg/dL (8.4-10.2); Creatinine 1 6.48 mg/dL (0.66-1.25); Potassium 4.9 mmol/L (3.5-5.1); Total Protein 7.7 g/dL (6.3-8.2)
[2020-09-18 20:12] LABS: Appearance CLOUDY (CLEAR); Bacteria RARE /HPF (NEGATIVE); Bilirubin NEGATIVE (NEGATIVE); Blood LARGE Ery/ul (0-5); Glucose NEGATIVE (NEGATIVE); Ketones NEGATIVE (NEGATIVE); Leukocyte Esterase NEGATIVE (NEGATIVE); Mucus SLIGHT /HPF (NEGATIVE); Nitrite NEGATIVE (NEGATIVE); Protein,Urine Dip 100 (Negative); RBC >101 /HPF (0-2); Specific Gravity 1.012 (1.005-1.025); Urobilinogen NEGATIVE mg/dL (0-1); WBC 26-50 /HPF (0-5)
[2020-09-18 21:06] VITALS: BP 187/83; PULSE 72; O2SAT 95
== END 2020-09-18 22:17 | disposition critical access hospital (66) ==
LOC: ED 17:35
DX: N18.9 Chronic kidney disease, unspecified (principal); N17.9 Acute kidney failure, unspecified; D63.1 Anemia in chronic kidney disease; I10 Essential (primary) hypertension; R31.9 Hematuria, unspecified; E78.5 Hyperlipidemia, unspecified; Z95.4 Presence of other heart-valve replacement; Z79.899 Other long term (current) drug therapy; R53.83 Other fatigue; I25.2 Old myocardial infarction; Z95.1 Presence of aortocoronary bypass graft
CPT/HCPCS: 36000; 36415; 80053; 81001; 82306; 82607; 82728; 82746; 83540; 83550; 83735; 83970; 85027; 87086; 96360; 96401; 99211; 99285; Q5106